=== PATIENT | male | born 1975 | race Caucasian/White ===

== ENCOUNTER 2018-11-30 05:09 | Emergency (ER) | payer OTHER ==
[~2018-11-30] VITALS: Ht 185.4 cm; Wt 118.2 kg
[2018-11-30 05:34] VITALS: BP 162/90
[2018-11-30 09:27] LABS: HIV ANTIBODY 1&2 RAPID NON-REACTIVE (Neg)
[2018-12-01 09:16] LABS: HBSAG SCREEN Negative (Negative); HEPATITIS C ANTIBODY <0.1 s/co ratio (0.0-0.9)
== END 2018-11-30 06:10 | disposition home or self-care (01) ==
LOC: ER 05:10
DX: S60.221A Contusion of right hand, initial encounter (principal); W18.09XA Striking against other object with subsequent fall, initial encounter; Y93.89 Activity, other specified; Y92.89 Other specified places as the place of occurrence of the external cause; Y99.8 Other external cause status
CPT/HCPCS: 36415; 73130; 86703; 86706; 86803; 87340; 99284